=== PATIENT | female | born 1950 | race Caucasian/White ===

== ENCOUNTER 2016-05-26 20:24 | Emergency (ER) | payer MEDICAID ==
[~2016-05-26] VITALS: Ht 157.5 cm; Wt 65.5 kg
[2016-05-26 20:30] VITALS: Ht 157.5 cm; Wt 65.5 kg
[2016-05-26] MEDS ORDERED: traMADol 50 MG TAB PO ONE (21:00)
[2016-05-26] MEDS ORDERED: regular insulin (21:04)
--- NOTE | 2016-05-26 21:07 | ERD ---
ER Documentation Chief Complaint Date/Time DATE: 05/26/16 TIME: 21:03 Chief Complaint R arm pain for 1 month, and after picking up a heavy object today pain> HPI 65-year-old female presents here in emergency department for complaints of right shoulder pain for 1 month now, worse today. Patient was picking up a heavy object today, it got worse today. Patient describes the pain as throbbing pain, 6/10 scale, is worse upon movement, unable to move full range of the right shoulder because of the pain. Patient took [id number]-[id number] diclofenac to help with symptoms with mild relief. Patient denies any numbness or tingling. Patient denies any chest pain. Patient denies any dizziness. Patient denies any fever or chills. ROS All systems reviewed and are negative except as per history of present illness. Medications Home Meds Reported Medications [regular insulin] Unknown Strength No Conflict Check 05/26/16 Allergies Allergies: Coded Allergies: No Known Allergy (Unverified , 05/26/16) PMhx/Soc History of Surgery: Yes (APPY, GALLBLADDER, HYSTERECTOMY.) Anesthesia Reaction: No Hx Neurological Disorder: No Hx Respiratory Disorders: No Hx Cardiac Disorders: No Hx Psychiatric Problems: No Hx Miscellaneous Medical Probl: Yes (DM( INSULIN).) Hx Alcohol Use: No Hx Substance Use: No Hx Tobacco Use: No Smoking Status: Never smoker FmHx Family History: No coronary disease, No diabetes, No other Physical Exam Vitals Vital Signs Date Time Temp Pulse Resp B/P Pulse Ox O2 Delivery O2 Flow Rate FiO2 05/26/16 20:30 97.2 81 18 188/81 95 Physical Exam GENERAL: The patient is well developed and appropriate for usual state of health, in no apparent distress. CHEST: Clear to auscultation bilaterally. There are no rales, wheezes or rhonchi. HEART: Regular rate and rhythm. No murmurs, clicks, rubs or gallops. No S3 or S4. ABDOMEN: Soft, nontender and nondistended. Good bowel sounds. No rebound or guarding. No gross peritonitis. No gross organomegaly or masses. No Crockett sign or McBurney point tenderness. BACK: No midline or flank tenderness. EXTREMITIES: Limitation movement of the right shoulder because of the pain, limitation of extension and flexion, internal and external rotation, no erythema noted, no crepitus noted. No deformity noted. Equal pulses bilaterally. Full range of motion of other joints of the body. Grossly neurovascularly intact. NEURO: Alert and oriented. Cranial nerves 2-12 intact. Motor strength in all 4 extremities with 5/5 strength. Sensation grossly intact. Normal speech and gait. SKIN: There is no apparent rash or petechia. The skin is warm and dry. HEMATOLOGIC AND LYMPHATIC: There is no evidence of excessive bruising or lymphedema. No gross cervical, axillary, or inguinal lymphadenopathy. Results 24 hrs Current Medications Medications (Trade) Dose Ordered Sig/Ijeoma Route PRN Reason Start Time Stop Time Status Last Admin Dose Admin Tramadol HCl (Ultram) 50 mg ONCE ONCE PO 05/26/16 21:00 05/26/16 21:01 DC 05/26/16 21:12 Patient was given medication for pain here in emergency department, after treatment, patient verbalized feeling much better. Patient's pain is improved. PROCEDURE: X-ray right shoulder CLINICAL INDICATION: Pain in the right shoulder. TECHNIQUE: 3 views right shoulder. COMPARISON: None FINDINGS: Question mild calcific tendinosis at the insertional infraspinatus. Otherwise, no acute fracture dislocation. Soft tissues otherwise unremarkable. IMPRESSION: 1. Question mild calcific tendinosis at the insertional infraspinatus. 2. Otherwise, no acute fracture. RPTAT: [facility] Physician Breann Date Time Electronically viewed and signed by Physician Breann on 05/26/2016 22:24 RS/ CC: DAIYS DONAHUE NP After receiving patients xray report, a sling was applied on the patients right arm. After application of the splint, patient has intact sensation and circulation on distal area of the affected joint. Patient does not complain of numbness or tingling after application of the splint. Patient tolerated procedure well. Procedures/MDM Medical Decision Making: Patient's pain is most likely consistent with a right shoulder calcific tendinosis is seen in the x-ray, can be also ligament involvement, can be also arthritic pains. There is no suspicion for neurovascular compromise. Patient has intact sensation and circulation of the affected extremity. There is low suspicion for septic arthritis. Patient does not have any fever. Radiology exams of the affected area does not show any fracture or dislocation. MRI is recommended outpatient with primary care doctor for possible evaluation. Disposition: Home. Patient is given prescription for ibuprofen for mild-to- moderate pain, tramadol for severe pain. Patient was advised to elevate the affected area and apply ice on affected area. Patient was advised that if symptoms are worse, numbness, tingling, high fever, unable to move joint, worsening symptoms, to return to emergency department immediately. Otherwise, patient is advised to follow up with the primary care doctor in 5-7 days for reevaluation of symptoms. Departure Diagnosis: Primary Impression: Right shoulder pain Chronicity: acute Qualified Code: M25.511 - Acute pain of right shoulder Additional Impression: Calcific tendinitis of right shoulder Condition: Stable Patient Instructions: Shoulder Pain (Uncertain Cause) Additional Instructions: Patient is given prescription for ibuprofen for xqrf-ry-jujepouh pain, tramadol for severe pain. Patient was advised to elevate the affected area and apply ice on affected area. Patient was advised that if symptoms are worse, numbness, tingling, high fever, unable to move joint, worsening symptoms, to return to emergency department immediately. Otherwise, patient is advised to follow up with the primary care doctor in 5-7 days for reevaluation of symptoms. DAISY DONAHUE NP May 26, 2016 21:07
--- NOTE | 2016-05-26 22:25 | RADRPT ---
PROCEDURE: X-ray right shoulder CLINICAL INDICATION: Pain in the right shoulder. TECHNIQUE: 3 views right shoulder. COMPARISON: None FINDINGS: Question mild calcific tendinosis at the insertional infraspinatus. Otherwise, no acute fracture di slocation. Soft tissues otherwise unremarkable. IMPRESSION: 1. Question mild calcific tendinosis at the insertional infraspinatus. 2. Otherwise, no acute fracture. RPTAT: [facility] Physician Breann Date Time Electronically viewed and signed by Edin Palmer Physician on 05/26/2016 22:24 RS/
[2016-05-26] MEDS ORDERED: TRAM50TA2 PO (22:37)
[2016-05-26] MEDS ORDERED: IBUP400T22 PO (22:37)
== END 2016-05-26 23:02 | disposition home or self-care (01) ==
LOC: FTE 20:24
DX: M25.511 Pain in right shoulder (principal); M75.31 Calcific tendinitis of right shoulder; E11.9 Type 2 diabetes mellitus without complications; Z79.4 Long term (current) use of insulin
CPT/HCPCS: 73030; Z7610

== ENCOUNTER 2017-02-05 08:13 | Emergency (ER) | payer MEDICAID ==
[~2017-02-05] VITALS: Wt 65.0 kg
[~2017-02-05 08:13] MED LIST: IBUP400T22 PO; TRAM50TA2 PO; regular insulin
[2017-02-05] MEDS ORDERED: ACETAMINOPHEN 500 MG TAB PO STA (08:36)
[2017-02-05] MEDS ORDERED: SOD CHLORIDE 0.9% 1,000 ML IV STA (08:36)
[2017-02-05 09:20] LABS: ADD UMIC YES; UR ASCORBIC ACID NEGATIVE (NEGATIVE); UR BACTERIA FEW /HPF (NONE SEEN); UR BILIRUBIN (Dip) NEGATIVE (NEGATIVE); UR BLOOD (Dip) 1+ mg/dL (NEGATIVE); UR CLARITY CLOUDY (CLEAR); UR COLOR YELLOW (YELLOW); UR GLUCOSE (Dip) 3+ mg/dL (NEGATIVE); UR KETONES (Dip) 2+ mg/dL (NEGATIVE); UR LEUKOCYTE ESTERASE (Dip) 1+ Leu/ul (NEGATIVE); UR MUCUS FEW /HPF (NONE SEEN); UR NITRITE (Dip) NEGATIVE (NEGATIVE); UR NONSQUAMOUS EPITHELIAL CELL 2 /HPF (NONE SEEN); UR RBC 10 /HPF (0-5); UR SPECIFIC GRAVITY (Dip) 1.036 (1.003-1.030); UR SQUAMOUS EPITHELIAL CELL MANY /HPF (FEW); UR TOTAL PROTEIN (Dip) 1+ mg/dl (NEGATIVE); UR UROBILINOGEN (Dip) NEGATIVE (NEGATIVE)
--- NOTE | 2017-02-05 09:53 | RADRPT ---
PROCEDURE: Chest x-ray CLINICAL INDICATION: Cough TECHNIQUE: Chest single view COMPARISON: None FINDINGS: The heart is normal in size. The pulmonary vessels are normal in caliber. The lungs are clear. Th e costophrenic angles are sharp. The visualized bony thorax is unremarkable. IMPRESSION: No acute cardiopulmonary disease. RPTAT: HH .Santana Majano MD, Date Time Electronically viewed and signed by .Santana Majano MD, MD on 02/05/2017 09:53 .W/
[2017-02-05] MEDS ORDERED: CEPH-443 PO (10:08)
[2017-02-05] MEDS ORDERED: IBUP-1542 PO (10:08)
--- NOTE | 2017-02-05 10:12 | ERD ---
ER Documentation Chief Complaint Chief Complaint cough x 3 days HPI Patient is a 66-year-old female who presents complaining of dry cough for the past 3 days as well as fever. She last took Motrin last night. No nausea or vomiting. No chest pain or shortness of breath. She has pain in her mouth but no sore throat. She is also complaining of increased urinary frequency but no dysuria or hematuria. ROS All systems reviewed and are negative except as per history of present illness. Medications Home Meds Active Scripts Cephalexin* (Keflex*) 500 Mg Capsule, 500 MG PO BID for 5 Days, CAP Prov:SILVIANO ROSALES PA-C 02/05/17 Ibuprofen* (Motrin*) 600 Mg Tab, 600 MG PO Q6, #30 TAB Prov:SILVIANO ROSALES PA-C 02/05/17 Tramadol HCl (Tramadol HCl) 50 Mg Tablet, 50 MG PO Q6 Y for SEVERE PAIN LEVEL 7- 10, #20 TAB Prov:DAISY DONAHUE SPOT MAN 05/26/16 Ibuprofen* (Motrin*) 400 Mg Tab, 400 MG PO Q6H Y for PAIN AND OR ELEVATED TEMP, #30 TAB Prov:DAISY DONAHUE SPOT MAN 05/26/16 Reported Medications [regular insulin] Unknown Strength No Conflict Check 05/26/16 Allergies Allergies: Coded Allergies: Latex, Natural Rubber (Verified Allergy, Unknown, itchiness and swelling, 02/05/17) PMhx/Soc History of Surgery: Yes (gall bladder, appy, left ovary) Anesthesia Reaction: No Hx Neurological Disorder: No Hx Respiratory Disorders: No Hx Cardiac Disorders: No Hx Psychiatric Problems: No Hx Miscellaneous Medical Probl: Yes (DM) Hx Alcohol Use: No Hx Substance Use: No Hx Tobacco Use: No Smoking Status: Never smoker FmHx Family History: No diabetes Physical Exam Vitals Vital Signs Date Time Temp Pulse Resp B/P Pulse Ox O2 Delivery O2 Flow Rate FiO2 02/05/17 08:15 101.1 110 18 150/80 99 Physical Exam INITIAL VITAL SIGNS: Reviewed by me GENERAL: Awake, alert and oriented x 4, well appearing, nontoxic, speaking in full sentences. No acute distress HEAD: Atraumatic NECK: Supple. No masses. Full range of motion. No meningismus. No midline tenderness. EYES: EOMI. PERRL. THROAT: No tonilar erythema or edema. No exudates. Uvula midline. No kissing tonsils. RESPIRATORY: Clear to auscultation bilaterally. Symmetric chest wall rise. No wheezing or rales. No accessory muscle use. CV: Regular rate and rhythm. No murmurs, rubs, or gallops. ABDOMEN: Soft, non-distended. Nontender. Negative [place]. Negative McBurneys point tenderness. No CVA tenderness bilaterally. No guarding. No rebound. Results 24 hrs Laboratory Tests Test 02/05/17 08:51 Urine Color YELLOW Urine Clarity CLOUDY Urine pH 5.0 Urine Specific [place] 1.036 Urine Ketones 2+mg/dL Urine Nitrite NEGATIVEmg/dL Urine Bilirubin NEGATIVEmg/dL Urine Urobilinogen NEGATIVEmg/dL Urine Leukocyte Esterase 1+Bill/ul Urine Microscopic RBC 10/HPF Urine Microscopic WBC 42/HPF Urine Squamous Epithelial Cells MANY/HPF Urine Bacteria FEW/HPF Urine Mucus FEW/HPF Urine Hemoglobin 1+mg/dL Urine Glucose 3+mg/dL Urine Total Protein 1+mg/dl Current Medications Medications (Trade) Dose Ordered Sig/Ijeoma Route PRN Reason Start Time Stop Time Status Last Admin Dose Admin Acetaminophen 1000 mg 1,000 mg ONCE STAT PO 02/05/17 08:36 02/05/17 08:39 DC 02/05/17 08:56 Sodium Chloride (NS) 1,000 ml @ 1,000 mls/hr Q1H STAT IV 02/05/17 08:36 02/05/17 09:35 DC 02/05/17 08:56 Procedures/MDM 66-year-old female presents with cough and fever. She does have a temperature of 101 and she is given Tylenol. She is otherwise well-appearing and her exam is otherwise normal with clear lungs. I reviewed this case with Dr. Roland who recommended giving the patient fluids and getting chest x-ray and flu swab. Flu swab did come out positive however she is out of the therapeutic window of Tamiflu. Urine however does show evidence of UTI and so she will be treated outpatient with Keflex and I recommend he continue to take Tylenol and Motrin as needed and increase water and clear fluid intake. Patient counseled regarding my diagnostic impression and care plan. Prior to discharge all questions answered. Pt agrees with treatment plan and understands strict return precautions. Pt is instructed to follow up with primary care provider within 24- 48 hours. Precautionary instructions provided including instructions to return to the ER if not improving or for any worsening or changing symptoms or concerns. Departure Diagnosis: Primary Impression: Cystitis Additional Impression: Influenza Condition: Stable Patient Instructions: Cystitis, Influenza (Adult) Additional Instructions: Llame al doctor MAANA y sj bahman SOPHIA PARA DENTRO DE 1-2 COLÓN.Dgale a la secretaria que nosotros le instruimos hacer esta sophia.Avise o llame si kimball condicin se empeora antes de la sophia. Regresa aqui si peor o no mejor. SILVIANO ROSALES PA-C Feb 05, 2017 10:12
[2017-02-05 10:28] VITALS: BP 119/64; PULSE 81; RESP 18; TEMP 98.7
== END 2017-02-05 10:35 | disposition home or self-care (01) ==
LOC: FTE 08:13
DX: N30.90 Cystitis, unspecified without hematuria (principal); J10.1 Influenza due to other identified influenza virus with other respiratory manifestations; E11.9 Type 2 diabetes mellitus without complications
CPT/HCPCS: 71010; 81001; 87400; 96360; J7030; Z7502; Z7610

== ENCOUNTER 2017-02-15 08:25 | Emergency (ER) | END 2017-02-15 13:23 | disposition home or self-care (01) ==